=== PATIENT | female | born 1935 | race Caucasian/White ===

== ENCOUNTER → 2016-08-16 | Outpatient (CLI) | payer OTHER, MEDICARE | LOC: FIMAGING 08:30 | PROVIDERS: ATTEND Physical Medicine & Rehabilitation | DX: M50.322 Other cervical disc degeneration at C5-C6 level (principal); M48.02 Spinal stenosis, cervical region; M50.222 Other cervical disc displacement at C5-C6 level; M46.92 Unspecified inflammatory spondylopathy, cervical region ==

== ENCOUNTER → 2016-12-26 | Outpatient (CLI) | payer OTHER, MEDICARE ==
[~2016-12-26] MED LIST: IOPAMIDOL (ISOVUE-300) 100 ML BTL ONE
[2016-12-26 13:51] LABS: CREATININE 1.1 mg/dL (0.6-1.0)
== END ==
LOC: FIMAGING 12:55
PROVIDERS: ATTEND Physical Medicine & Rehabilitation
DX: K76.89 Other specified diseases of liver (principal)
CPT/HCPCS: 74170; Q9967

== ENCOUNTER 2017-11-22 09:14 | Emergency (ER) | payer OTHER, MEDICARE ==
--- NOTE | 2017-11-22 09:23 | CPEKG ---
Heart Rate: 132 RR Interval: 455 P-R Interval: 81 QRSD Interval: 70 QT Interval: 324 QTC Interval: 480 P [place]: 0 QRS [place]: 44 T Wave [place]: 38 EKG Severity - ABNORMAL ECG - EKG Impression: SINUS TACHYCARDIA Electronically Signed By: Shay Bueno 22-Nov-2017 10:04:18
--- NOTE | 2017-11-22 09:27 | EDPHY ---
H & P Time Seen by Provider: 11/22/17 09:19 HPI/ROS: CHIEF COMPLAINT: Tachycardia HISTORY OF PRESENT ILLNESS: The patient presents to the ED from a surgery center after she was noted to have tachycardia prior to receiving an epidural steroid injection. The patient told me that she was experiencing some left back spasms during this episode. This is not uncommon symptom for her. The patient was noted to be an irregular tachycardia narrow complex in nature during this event. She was not hypoxic. The patient states that her symptoms have resolved. She currently feels anxious. She has no history of recent exertional chest pain or dyspnea. The patient has no prior history of atrial fibrillation. The patient denies asymmetric calf pain or swelling. She does have a history of cervical stenosis and hypertension. REVIEW OF SYSTEMS: A comprehensive 10 point review of systems is otherwise negative aside from elements mentioned in the history of present illness. Source: Patient Exam Limitations: No limitations - Medical/Surgical History PMH: Past medical history: Cervical stenosis, hypertension - Family History Significant Family History: No pertinent family hx - Social History Smoking Status: Never smoked - Physical Exam Exam: General Appearance: Alert, no distress Eyes: Pupils equal and round no pallor or injection ENT, Mouth: Mucous membranes moist Respiratory: There are no retractions, lungs are clear to auscultation Cardiovascular: Tachycardic, regular Gastrointestinal: Abdomen is soft and nontender, no masses, bowel sounds normal Neurological: 5/5 strength all 4 extremities Skin: Warm and dry, no rashes Musculoskeletal: Neck is supple nontender Extremities: symmetrical, full range of motion Constitutional: Initial Vital Signs Temperature (C) 36.3 C 11/22/17 09:33 Heart Rate 131 H 11/22/17 09:33 Respiratory Rate 18 11/22/17 09:33 Blood Pressure 159/143 H 11/22/17 09:33 O2 Sat (%) 98 11/22/17 09:33 O2 Delivery Mode Room Air Allergies/Adverse Reactions: oxycodone [Oxycodone] Allergy (Unknown, Verified 03/09/10 21:20) codeine Allergy (Verified 11/22/17 09:37) GLUTEN Allergy (Intermediate, Uncoded 03/09/10 21:20) Home Medications: Medication Instructions Recorded CELEBREX 12/28/09 ESTROGENS,CONJUGATED 12/28/09 HYDROCHLOROTHIAZIDE 12/28/09 Levothroid 12/28/09 Potassium Cl 12/28/09 Supplements 12/28/09 T3 12/28/09 Medical Decision Making - Diagnostics EKG Interpretation: EKG: Complete interpretation has been separately recorded in the [facility] archive. Summary impression: Sinus tachycardia, rate 132 Imaging Results: Imaging Impressions Chest/Thorax CTA 11/22/17 10:02 Impression: 1. No evidence of pulmonary embolus using CT protocol. 2. Mild enlargement of the right and left atria with normal appearance of the lateral ventricles. 3. Possible new nodule within the deep central right breast near the chest wall. If indicated, consider correlation with mammography and ultrasound. 4. Stable liver cysts as well as stable solid benign-appearing nodule right lobe liver posterior segment inferiorly. Findings discussed with Shay Bueno at 11:02 hour, 11/22/2017. ED Course/Re-evaluation: The patient presents to the ED after an episode of tachycardia and likely atrial fibrillation. The patient is noted to be in a sinus tachycardia in the emergency department. She had a slightly elevated D-dimer. CT pulmonary angiogram demonstrates no evidence of PE. The patient's troponin is normal. I do believe her tachycardia secondary to mild dehydration. The patient is noted to have biatrial enlargement on her chest CT scan. I did curbside Dr. Freeman Cruz who has seen the patient as an outpatient by her report. A echocardiogram has been obtained in the emergency department. Dr. Freeman Cruz will follow up with the patient in his office this Monday. Echocardiogram demonstrates no critical findings. Patient's heart rate at discharge is 85 and sinus. Differential Diagnosis: Differential diagnosis considered includes pulmonary embolism, myocardial infarction, atrial fibrillation, SVT, dehydration, metabolic abnormality - Data Points Laboratory Results: Laboratory Results 11/22/17 09:14 11/22/17 11/22/17 11/22/17 09:31 09:14 09:14 D-Dimer 0.54 ug/mLFEU H ug/mLFEU (0.00-0.50) Sodium 140 mEq/L mEq/L (135-145) Potassium 3.6 mEq/L mEq/L (3.3-5.0) Chloride 99 mEq/L mEq/L (97-110) Carbon Dioxide 26 mEq/l mEq/l (22-31) Anion Gap 15 mEq/L mEq/L (8-16) BUN 25 mg/dL H mg/dL (7-23) Creatinine 1.1 mg/dL H mg/dL (0.6-1.0) Estimated GFR 47 Glucose 77 mg/dL mg/dL (70-100) Calcium 9.7 mg/dL mg/dL (8.5-10.4) POC Troponin I 0.02 ng/mL ng/mL (0.00-0.08) Point of Care Test Results: Chemistry 11/22/17 09:31 POC Troponin I 0.02 ng/mL ng/mL (0.00-0.08) Departure - Departure Disposition: Home, Routine, Self-Care Clinical Impression: Palpitations Condition: Good Instructions: Heart Palpitations (DC) Additional Instructions: 1. Please return to the ED for severe chest pain or shortness of breath. 2. Please follow up with Dr. Freeman Cruz in his office on Monday. Please contact his office today to schedule that visit. Please let the office staff know that Dr. Freeman Cruz requested you have a Monday appointment. Referrals: Freeman Cruz MD [Medical Doctor] - As per Instructions
[2017-11-22] MEDS ORDERED: IOPAMIDOL (ISOVUE 370) 100 ML BTL IV ONE (10:14)
[2017-11-22 12:33] VITALS: BP 139/115
--- NOTE | 2017-11-22 12:38 | ECHO ---
[email or web address] [address] [address] Main: [phone] Fax: Transthoracic Echocardiogram Name: CHRIS DALEY MR#: [id number] Study Date: 11/22/2017 Study Time: 12:05 PM Date of : 1935 Age: 82 year(s) Height: 157.5 cm (62 in.) Weight: 58.97 kg (130 lb.) BSA: 1.59 m2 Gender: Female Examination: Echo Indication: Chest Pain Image Quality: Adequate Contrast: Requested by: Shay Bueno BP: / Heart Rate: Rhythm: Sinus tachycardia Indication: Chest Pain Procedure Staff Building Architectural Designer: Sarita Juarez [facility] Reading Physician: Freeman Cruz MD Requesting Provider: Conclusions: No pericardial effusion. Normal left ventricular systolic function with ejection fraction of 70% and no regional wall motion abnormalities. Left atrial enlargement with mild mitral regurgitation. Mild to moderate tricuspid regurgitation with right ventricular systolic pressure of 37 mm of mercury. Ultrasound imaging of the liver was performed inadvertently a cystic structure is seen. Clinical correlation suggested with formal liver ultrasoun Measurements: Chambers Valvular Assessment AV/MV Valvular Assessment TV/PV Normal Normal Normal Name Value Range Name Value Range Name Value Range Ao Sharifa (MM): 2.8 cm (2.2 cm-3.7 AV Vmax: 1.14 m/s (1 m/s-1.7 TR Vmax: 2.82 mm/s ( - ) cm) m/s) TR PGmax: 32 mmHg ( - ) IVSd (2D): 1.4 cm (0.6 cm-1.1 AV maxP mmHg ( - ) syst. PAP: 37 mmHg ( - ) cm) LVOT Vmax: 1.10 m/s (0.7 m/s-1.1 PV Vmax: 0.81 m/s (0.6 m/s-0.9 LVDd (2D): 2.8 cm (3.9 cm-5.3 m/s) m/s) cm) MV E Vmax: 0.49 m/s ( - ) PV PGmax: 3 mmHg ( - ) LVDs (2D): 1.7 cm (2.1 cm-4 MV A Vmax: 1.16 m/s ( - ) cm) MV E/A: 0.42 ( - ) LVPWd (2D): 0.9 cm ( - ) LVEF (BP): 70 % (>=55 %) RVDd(2D): 3.0 cm (1.9 cm-3.8 cmmm) Continued Measurements: Chambers Valvular Assessment TV/PV Name Value Name Value LADs Lon.1 cm CVP (est.): 5 mmHg LA Area: 24.4 cm2 LA Volume: 64 ml Patient: CHRIS DALEY Study Date: 11/22/2017 Page 1 of 2 12:05 PM LA Volume Index: 40.3 ml/m2 TAPSE: 1.9 cm RA Area: 14.0 cm2 Additional Vessels Name Value Ao Ascendin.0 cm Findings: Left Ventricle: Normal size left ventricle. No LV hypertrophy. Normal global systolic LV function. EF is 70 %. No regional wall motion abnormality. Normal diastolic LV function. Mild sigmoid septum noted without significant outflow gradient. Right Ventricle: Normal size right ventricle. Normal RV function. Left Atrium: The left atrium is moderately dilated. Right Atrium: The right atrium is normal in size. Mitral Valve: The mitral valve is normal in appearance and function. Mild mitral valve regurgitation is present. No mitral stenosis is present. Aortic Valve: The aortic valve is normal in appearance and function. The aortic valve is tri-leaflet. There is no aortic valve regurgitation. No aortic valve stenosis is present. Tricuspid Valve: The tricuspid valve is normal in appearance and function. Mild to moderate tricuspid valve regurgitation. Right ventricular systolic pressure measures 37mmHg. Borderline elevated pumonary artery pressure. Pulmonic Valve: Pulmonary valve not well visualized. There is no pulmonic regurgitation seen. Aorta: The aorta is normal. Normal size aortic root measuring 2.8 cm. Normal size ascending aorta measuring 3.0 cm. IVC: The IVC is normal sized. Pericardium: No pericardial effusion. (No Signature Object) Patient: CHRIS DALEY Study Date: 11/22/2017 Page 2 of 2 12:05 PM [id number]
== END 2017-11-22 12:42 | disposition home or self-care (01) ==
LOC: EDUNIT#
DX: R00.2 Palpitations (principal)
CPT/HCPCS: 71275; 93005; 93306; 99285; Q9967; 84484-PO

== ENCOUNTER → 2018-01-01 | Outpatient (CLI) | payer OTHER, MEDICARE | LOC: FIMAGING 10:26 | PROVIDERS: ATTEND Family Medicine | DX: R06.02 Shortness of breath (principal); I10 Essential (primary) hypertension; R00.2 Palpitations | CPT/HCPCS: 78452; 93017; A9500; J2785 ==

== ENCOUNTER → 2018-01-10 | Outpatient (CLI) | payer OTHER, MEDICARE | DX: R92.8 Other abnormal and inconclusive findings on diagnostic imaging of breast (principal) ==

== ENCOUNTER 2018-05-02 14:51 | Emergency (ER) | payer OTHER, MEDICARE ==
[2018-05-02] MEDS ORDERED: NS 1,000 ML IV ONE (15:03)
--- NOTE | 2018-05-02 15:03 | EDPHY ---
H & P Stated Complaint: palpitations and lightheaded starting this am Time Seen by Provider: 05/02/18 15:03 HPI/ROS: HPI CHIEF COMPLAINT: Palpitations. HISTORY OF PRESENT ILLNESS: Very pleasant 82-year-old female, presents emergency room palpitations. Patient reports to me that back in October she had a very similar episode with an increased heart rate she was seen here and diagnosed with possible AFib. She followed up with her crystal cutter Dr. Freeman Cruz, was given Holter monitor for 30 days. Did not really capture any events. She gets regular spinal injections so declined blood thinners for history of possible AFib. She arrives to the emergency room stating that today she has felt palpitations felt her heart rate rather fast over the past day. She woke up with palpitations heart rate in the 130s. She denies any chest pain or shortness of breath denies dyspnea on exertion does complain of some lightheadedness intermittently. She arrives to the emergency room in no acute distress. Denies chest pain. Heart rate in the 90s. Echocardiogram was reviewed back in October. Normal. Past Medical History: Cervical stenosis, hypertension Past Surgical History: Regular spinal injections for cervical pain. Social History: Denies drugs alcohol tobacco. Family History: Noncontributory ROS REVIEW OF SYSTEMS: 10 Systems were reviewed and negative with the exception of the elements mentioned in the history of present illness. Exam Constitutional triage nursing summary reviewed, vital signs reviewed, awake/ alert. Eyes normal conjunctivae and sclera, EOMI, PERRLA. HENT normal inspection, atraumatic, moist mucus membranes, no epistaxis, neck supple/ no meningismus, no raccoon eyes. Respiratory clear to auscultation bilaterally, normal breath sounds, no respiratory distress, no wheezing. Cardiovascular irregular, irregular rhythm no murmur, no edema, distal pulses normal. Gastrointestinal soft, non-tender, no rebound, no guarding, normal bowel sounds, no distension, no pulsatile mass. Genitourinary no CVA tenderness. Musculoskeletal no midline vertebral tenderness, full range of motion, no calf swelling, no tenderness of extremities, no meningismus, good pulses, neurovascularly intact. Skin pink, warm, & dry, no rash, skin atraumatic. Neurologic awake, alert and oriented x 3, AAOx3, moves all 4 extremities equally, motor intact, sensory intact, CN II-XII intact, normal cerebellar, normal vision, normal speech. Psychiatric normal mood/affect. Heme/Lymph/Immune no lymphadenopathy. Differential Diagnosis: Differential diagnosis includes but is not limited to: AFib, a flutter, SVT ACS, atypical chest pain, pneumothorax, pneumonia, pulmonary embolism, aortic dissection, congestive heart failure, tumor, musculoskeletal pain, esophageal pain, GERD, peptic ulcer disease, pancreatitis Medical Decision Making: Plan for this patient IV establishment with blood draw , check electrolytes and magnesium, IV fluid bolus, EKG, equipment monitor phototypesetting, chest x-ray re-evaluate. Re-evaluation: 1618: This spoke with Dr. Ann, reviewed the case in detail. EKGs reviewed show a flutter. Recommend anticoagulation. Dr. Ann, he is talking to the patient about her treatment options. We do recommend she has close follow-up with Dr. Cruz and Dr. Calix, Underlying EKG shows most likely a flutter. She is not on any anticoagulation. Recommend she has close cardiology follow-up, and discussing risk versus benefit of anticoagulation. The patient gets regular injections for chronic neck and back pain. She in the past has declined anticoagulation. She does have risk factors for stroke given her age, comorbidities, note is recommend she takes anticoagulation. CHADS Score for Atrial Fibrillation Stroke Risk from [email or web address] on 05/02/2018 All calculations should be rechecked by clinician prior to use RESULT SUMMARY: 3 points High risk of thromboembolic event. 5.9% risk of event per year if no coumadin. The adjusted stroke rate was the expected stroke rate per 100 person-years derived from the multivariable model assuming that aspirin was not taken. INPUTS: <abbr title='Congestive heart failure'>CHF</abbr> history > 1 = Yes Hypertension history > 1 = Yes Age 74 years > 1 = Yes Diabetes mellitus history > 0 = No Stroke or TIA symptoms previously > 0 = No 1635: Dr. Ann, has seen and evaluated the patient. Patient was previously given a prescription for Eliquis. Will start her on 2.5 mg Eliquis p. O. Daily. She will need to follow up with her crystal cutter as well as Dr. Calix, Dr. Ann, has met with the patient. Discusion for Risk vs benefit about anticoagulation. Eliquis. Patient agrees for Eliquis 2.5mg Follow up with Dr. Anthony Alvarez. Additionally return precautions discussed return emergency room if worsening symptoms chest pain shortness of breath not doing well. She is comfortable this plan and feels well. She would like to go home. Serum creatinine <1.5 mg/dL: No dosage adjustment necessary unless 80 years of age and body weight 60 kg, then reduce dose to 2.5 mg twice daily Discussed patient's new medication of Eliquis. Recommend follow-up with electrophysiology Dr. Alvarez, also Dr. Millard. Return precautions discussed return emergency room if high heart rate, syncope, chest pain, shortness of breath. Recommend continuing her diltiazem. Eliquis 2.5 mg twice daily. This was reduced dose due to her age body weight 59 kilos. Reduced adjustment from 5 mg twice daily to 2.5 mg twice daily. Return precautions discussed. If she gets spinal injection she should hold Eliquis. Speak with her doctor about this. Patient re-evaluated 1728. Heart rate in the 60s. Denies chest pain or shortness of breath. Trop negative. Chest x-ray reviewed. Source: Patient - Medical/Surgical History Hx Asthma: No Hx Chronic Respiratory Disease: No Hx Diabetes: No Hx Cardiac Disease: No Hx Renal Disease: No Hx Cirrhosis: No Hx Alcoholism: No Hx HIV/AIDS: No Hx Splenectomy or Spleen Trauma: No Other PMH: Cervical stenosis, celiac's disease, HTN - Social History Smoking Status: Never smoked Constitutional: Initial Vital Signs Temperature (C) 36.8 C 05/02/18 14:59 Heart Rate 106 H 05/02/18 14:59 Respiratory Rate 16 05/02/18 14:59 Blood Pressure 151/79 H 05/02/18 14:59 O2 Sat (%) 97 05/02/18 14:59 O2 Delivery Mode Room Air Allergies/Adverse Reactions: oxycodone [Oxycodone] Allergy (Unknown, Verified 03/09/10 21:20) codeine Allergy (Verified 11/22/17 09:37) GLUTEN Allergy (Intermediate, Uncoded 03/09/10 21:20) Home Medications: Medication Instructions Recorded [place] Thyroid 01/01/18 Celebrex 01/01/18 Chlorthalidone 01/01/18 Diltiazem 08/06/18 Estradiol Transdermal Patch 01/01/18 Lisinopril 01/01/18 Potassium Chloride 01/01/18 Apixaban [Eliquis] 2.5 mg PO BID #60 tab 05/02/18 Medical Decision Making - Diagnostics Imaging Results: Imaging Impressions Chest X-Ray 05/02/18 15:16 Impression: Probable left basilar atelectasis. - Data Points Laboratory Results: Laboratory Results 05/02/18 15:09 05/02/18 15:09 05/02/18 05/02/18 05/02/18 15:11 15:09 15:09 WBC RBC Hgb Hct MCV MCH MCHC RDW Plt Count MPV Neut % (Auto) Lymph % (Auto) Early % (Auto) Eos % (Auto) Baso % (Auto) Nucleat RBC Rel Count Absolute Neuts (auto) Absolute Lymphs (auto) Absolute Monos (auto) Absolute Eos (auto) Absolute Basos (auto) Absolute Nucleated RBC Immature Gran % Immature Gran # PT 13.1 SEC SEC (12.0-15.0) INR 0.97 (0.83-1.16) APTT 29.2 SEC SEC (23.0-38.0) Sodium 135 mEq/L mEq/L (135-145) Potassium 3.5 mEq/L mEq/L (3.5-5.2) Chloride 95 mEq/L L mEq/L (97-110) Carbon Dioxide 26 mEq/l mEq/l (22-31) Anion Gap 14 mEq/L mEq/L (6-14) BUN 21 mg/dL mg/dL (7-23) Creatinine 1.3 mg/dL H mg/dL (0.6-1.0) Estimated GFR 39 Glucose 99 mg/dL mg/dL (70-100) Calcium 9.3 mg/dL mg/dL (8.5-10.4) Magnesium 1.6 mg/dL mg/dL (1.6-2.3) Creatine Kinase 64 IU/L IU/L (0-156) CK-MB (CK-2) Fraction 1.67 ng/mL ng/mL (0.00-4.55) POC Troponin I 0.02 ng/mL ng/mL (0.00-0.08) NT-Pro-B Natriuret Pep 3570 pg/mL H pg/mL (0-450) 05/02/18 15:09 WBC 8.13 10^3/uL 10^3/uL (3.80-9.50) RBC 4.35 10^6/uL 10^6/uL (4.18-5.33) Hgb 14.0 g/dL g/dL (12.6-16.3) Hct 40.7 % % (38.0-47.0) MCV 93.6 fL fL (81.5-99.8) MCH 32.2 pg pg (27.9-34.1) MCHC 34.4 g/dL g/dL (32.4-36.7) RDW 13.5 % % (11.5-15.2) Plt Count 311 10^3/uL 10^3/uL (150-400) MPV 8.8 fL fL (8.7-11.7) Neut % (Auto) 70.2 % % (39.3-74.2) Lymph % (Auto) 20.5 % % (15.0-45.0) Early % (Auto) 7.1 % % (4.5-13.0) Eos % (Auto) 1.4 % % (0.6-7.6) Baso % (Auto) 0.4 % % (0.3-1.7) Nucleat RBC Rel Count 0.0 % % (0.0-0.2) Absolute Neuts (auto) 5.71 10^3/uL 10^3/uL (1.70-6.50) Absolute Lymphs (auto) 1.67 10^3/uL 10^3/uL (1.00-3.00) Absolute Monos (auto) 0.58 10^3/uL 10^3/uL (0.30-0.80) Absolute Eos (auto) 0.11 10^3/uL 10^3/uL (0.03-0.40) Absolute Basos (auto) 0.03 10^3/uL 10^3/uL (0.02-0.10) Absolute Nucleated RBC 0.00 10^3/uL 10^3/uL (0-0.01) Immature Gran % 0.4 % % (0.0-1.1) Immature Gran # 0.03 10^3/uL 10^3/uL (0.00-0.10) PT INR APTT Sodium Potassium Chloride Carbon Dioxide Anion Gap BUN Creatinine Estimated GFR Glucose Calcium Magnesium Creatine Kinase CK-MB (CK-2) Fraction POC Troponin I NT-Pro-B Natriuret Pep Medications Given: Discontinued Medications Sodium Chloride (Ns) 1,000 mls @ 0 mls/hr IV EDNOW ONE; Wide Open PRN Reason: Protocol Stop: 05/02/18 15:04 Last Admin: 05/02/18 15:17 Dose: 1,000 mls Point of Care Test Results: Chemistry 05/02/18 15:11 POC Troponin I 0.02 ng/mL ng/mL (0.00-0.08) Departure - Departure Disposition: Home, Routine, Self-Care Clinical Impression: Atrial flutter Qualifiers: Atrial flutter type: unspecified Qualified Code(s): I48.92 - Unspecified atrial flutter Condition: Good Instructions: Atrial Flutter (ED) Additional Instructions: 1. Return to the emergency room if there is worsening symptoms questions or concerns. Referrals: NONE *PRIMARY CARE P,. [Primary Care Provider] - As per Instructions Freeman Cruz MD [Medical Doctor] - As per Instructions Ifeanyi Alvarez MD [Medical Doctor] - As per Instructions Prescriptions: Apixaban [Eliquis] 2.5 mg PO BID #60 tab
[2018-05-02 15:20] LABS: PLATELET COUNT 311 10^3/uL (150-400)
[2018-05-02 15:30] LABS: CREATINE KINASE 64 IU/L (0-156)
[2018-05-02 15:31] LABS: INR 0.97 (0.83-1.16); PROTIME(PATIENT) 13.1 SEC (12.0-15.0)
[2018-05-02] MEDS ORDERED: APIXABAN 2.5 MG TAB PO ONE (16:40)
[2018-05-02 17:48] VITALS: BP 140/75
--- NOTE | 2018-05-04 08:01 | CPEKG ---
Test Reason : OPEN Blood Pressure : / mmHG Vent. Rate : 066 BPM Atrial Rate : 268 BPM P-R Int : 209 ms QRS Dur : 086 ms QT Int : 446 ms P-R-T Axes : -76 024 045 degrees QTc Int : 468 ms Atrial flutter with predominant 4:1 AV block Inferior infarct, old Probable anterolateral infarct, old Confirmed by Noah Alexandre ([id number]) on 05/04/2018 8:00:37 AM Referred By: Confirmed By:Noah Alexandre
--- NOTE | 2018-05-04 08:01 | CPEKG ---
Test Reason : OPEN Blood Pressure : / mmHG Vent. Rate : 092 BPM Atrial Rate : 046 BPM P-R Int : 203 ms QRS Dur : 083 ms QT Int : 373 ms P-R-T Axes : -86 000 041 degrees QTc Int : 462 ms Atrial flutter Probable anterolateral infarct, old Confirmed by Noah Alexandre ([id number]) on 05/04/2018 8:00:37 AM Referred By: Confirmed By:Noah Alexandre
== END 2018-05-02 17:48 | disposition home or self-care (01) ==
DX: I48.92 Unspecified atrial flutter (principal); E86.9 Volume depletion, unspecified; I10 Essential (primary) hypertension; M48.02 Spinal stenosis, cervical region
CPT/HCPCS: 84484-PO

== ENCOUNTER 2018-06-18 09:49 | Emergency (ER) | payer OTHER, MEDICARE ==
--- NOTE | 2018-06-18 09:58 | EDPHY ---
H & P Time Seen by Provider: 06/18/18 09:54 HPI/ROS: CHIEF COMPLAINT: Heart racing HISTORY OF PRESENT ILLNESS: Patient was seen in May 02 for atrial flutter. She is currently anticoagulated on Eliquis and takes diltiazem 120 mg per day. She had a negative nuclear stress test in the last couple of weeks of [facility]. She noticed her heart was racing today at about 1:30 a.m. And her heart rate was 122 at 2:00 a.m. And 138 at 8:30 a.m.. At this time she also felt a "sharp come and go pain" under her left breast in her chest, the lasted about 5 or 6 sec. She said it felt like a "cluster in my chest." Still is a little bit of left-sided chest discomfort when she takes a deep breath. No coughing or shortness of breath or hemoptysis. She is taking some deep breaths to keep herself calm. REVIEW OF SYSTEMS: Eye: no change in vision ENT: no sore throat Cardiac: No syncope Pulmonary: no cough or SOB Abdomen: no vomiting, diarrhea, abdominal pain Musculoskeletal: Patient has chronic cervical spine stenosis for which she gets regular injections. Skin: no rash Neuro: no headache Constitutional: no fever : no urinary symptoms A comprehensive 10 point review of systems is otherwise negative aside from elements mentioned in the history of present illness. PAST MEDICAL HISTORY: Cervical spine stenosis, celiac disease, hypertension, atrial fibrillation/flutter. Social history: Lives here and in [facility] General Appearance: Alert and conversant, cooperative. Eyes: No scleral icterus. ENT, Mouth: Normal mucous membranes. Respiratory: Normal respiratory effort, breath sounds equal, lungs are clear to auscultation. Cardiovascular: Regular rate and rhythm. Tachycardic. Gastrointestinal: Abdomen is soft and non tender. Neurological: Alert, face symmetric, normal motor and sensory in extremities. Skin: Warm and dry, no rashes. Musculoskeletal: No peripheral edema. Psychiatric: Not agitated. Emergency Department course/MDM: Initial EKG shows atrial flutter but she spontaneously converted to sinus rhythm , 2nd EK-lead EKG interpreted by me; official reading is in computer system. My interpretation is sinus rhythm with TX 212, at 10:19 a.m. Discussed with [facility] for cardiology, he recommended increase oral diltiazem dose to 120mg po bid; at 10:25. Discussed with patient and consented. Cardiology will call her tomorrow. Unlikely to be ACS or AL with recent negative nuclear stress test and 5 sec of chest pain, unlikely to be pulmonary embolism because she is on Eliquis. Smoking Status: Never smoked Constitutional: Initial Vital Signs Temperature (C) 36.4 C 06/18/18 09:51 Heart Rate 134 H 06/18/18 09:51 Respiratory Rate 20 06/18/18 09:51 Blood Pressure 172/123 H 06/18/18 09:51 O2 Sat (%) 98 06/18/18 09:51 O2 Delivery Mode Room Air Allergies/Adverse Reactions: oxycodone [Oxycodone] Allergy (Unknown, Verified 06/18/18 09:49) codeine Allergy (Verified 06/18/18 09:49) GLUTEN Allergy (Intermediate, Uncoded 03/09/10 21:20) Home Medications: Medication Instructions Recorded Priddy Thyroid 01/01/18 Celebrex 01/01/18 Chlorthalidone 01/01/18 Diltiazem 01/01/18 Estradiol Transdermal Patch 01/01/18 Lisinopril 01/01/18 Potassium Chloride 01/01/18 Apixaban [Eliquis] 2.5 mg PO BID #60 tab 05/02/18 Medical Decision Making - Diagnostics EKG Interpretation: 12-lead EKG interpreted by me; official reading is in computer system. My interpretation is atrial flutter rate 114 with no acute ischemic changes. Differential Diagnosis: Differential diagnosis considered for chest pain including but not limited to myocardial ischemia, aortic dissection, pericarditis, pulmonary embolus, chest wall pain, pleural inflammation and pulmonary infectious causes. Departure - Departure Disposition: Home, Routine, Self-Care Clinical Impression: Atrial flutter with rapid ventricular response Condition: Good Instructions: Atrial Flutter (ED) Additional Instructions: Continue medications including Eliquis and diltiazem as prescribed. Increase your diltiazem dosing to 120mg by mouth twice a day; once in the morning and once in the evening, about 12 hours apart. [email or web address] will call you tomorrow. Referrals: Nicholas Ann MD [Medical Doctor] - As per Instructions
--- NOTE | 2018-06-18 10:23 | CPEKG ---
Test Reason : OPEN Blood Pressure : / mmHG Vent. Rate : 114 BPM Atrial Rate : 263 BPM P-R Int : 160 ms QRS Dur : 080 ms QT Int : 327 ms P-R-T Axes : 000 032 031 degrees QTc Int : 451 ms Atrial flutter Ventricular premature complex Minimal ST depression, anterolateral leads Confirmed by Trell Naylor ([id number]) on 06/18/2018 10:23:00 AM Referred By: Confirmed By:Trell Naylor
--- NOTE | 2018-06-18 10:23 | CPEKG ---
Test Reason : OPEN Blood Pressure : / mmHG Vent. Rate : 068 BPM Atrial Rate : 068 BPM P-R Int : 212 ms QRS Dur : 086 ms QT Int : 409 ms P-R-T Axes : -68 021 044 degrees QTc Int : 436 ms Sinus or ectopic atrial rhythm Borderline prolonged WI interval Confirmed by Trell Naylor ([id number]) on 06/18/2018 10:23:05 AM Referred By: Confirmed By:Trell Naylor
[2018-06-18 10:44] VITALS: BP 161/93
== END 2018-06-18 10:53 | disposition home or self-care (01) ==
DX: I48.92 Unspecified atrial flutter (principal); I10 Essential (primary) hypertension; K90.0 Celiac disease; M48.02 Spinal stenosis, cervical region; Z79.01 Long term (current) use of anticoagulants

== ENCOUNTER → 2018-06-19 | Outpatient (CLI) | payer OTHER, MEDICARE | LOC: BHFA 11:00 | PROVIDERS: ATTEND Registered Nurse | DX: I48.92 Unspecified atrial flutter (principal) ==

== ENCOUNTER 2018-07-11 08:45 | Observation (INO) | payer OTHER, MEDICARE ==
[2018-07-11] MEDS ORDERED: NS 1,000 ML IV ONE (08:47)
[2018-07-11 09:27] LABS: PLATELET COUNT 292 10^3/uL (150-400)
[2018-07-11 09:36] LABS: INR 0.98 (0.83-1.16); PROTIME(PATIENT) 13.2 SEC (12.0-15.0)
[2018-07-11] MEDS ORDERED: HEPARIN 10,000 UNIT/10 ML MDV (1,000 UNIT/ML) ONE (09:48)
[2018-07-11] MEDS ORDERED: LIDOCAINE 1% 300 MG/30 ML SDV ONE (09:48)
[2018-07-11] MEDS ORDERED: ISOPROTERENOL HCL/D5W 0.2 MG/50 ML BAG IV ONE (09:48)
[2018-07-11] MEDS ORDERED: BUPIVACAINE 0.75% 10 ML SDV ONE (09:48)
--- NOTE | 2018-07-11 09:55 | PDGENHP ---
History & Physical Chief Complaint: symptomatic afl Relevant Physical Exam: s1s2 rrr cta ao3 Cardiorespiratory Assessment: for AFL ablation and LINQ monitor. Reviewed indications for ablation and LINQ with patient
[2018-07-11] MEDS ORDERED: MIDAZOLAM 2 MG/2 ML VIAL ONE ×2 (09:56→10:20)
--- NOTE | 2018-07-11 10:01 | PDANEPAE ---
ANE Past Medical History - Pulmonary History Hx Oxygen in Use at Home: No - Endocrine History Hx Diabetes: No ANE Review of Systems Review of Systems: ANE Patient History - Allergies Allergies/Adverse Reactions: oxycodone [Oxycodone] Allergy (Unknown, Verified 06/18/18 09:49) codeine Allergy (Verified 06/18/18 09:49) GLUTEN Allergy (Intermediate, Uncoded 03/09/10 21:20) - Home Medications Home Medications: Chlorthalidone [Chlorthalidone 25 mg (*)] 25 mg PO DAILY 01/01/18 [Last Taken 08:00] Diltiazem HCl [Cartia Xt] 120 mg PO HS 01/01/18 [Last Taken 07/08/18 21:00] Estradiol [Vivelle-Dot 0.075MG (*)] 0.075 mg TD SuWe@0800 01/01/18 [Last Taken 07/04/18 08:00] Lisinopril [Zestril 5 mg (*)] 5 mg PO DAILY 01/01/18 [Last Taken 07/10/18 08:00] Potassium Cl [Klor-Con] 10 meq PO BID 01/01/18 [Last Taken 07/10/18 21:00] Thyroid [Biloxi Thyroid 60 MG (*)] 60 mg PO SUWE 01/01/18 [Last Taken 07/08/18 08:00] celeCOXIB [Celebrex (*)] 200 mg PO BID 01/01/18 [Last Taken 07/10/18 21:00] Azelastine/Fluticasone [Dymista Nasal [place]] 1 spray NS DAILY 07/04/18 [Last Taken 07/10/18 08:00] Glucosamine Sulfate [Glucosamine Sulfate 500 MG (*)] 500 mg PO DAILY 07/04/18 [ Last Taken Unknown] Herbals/Supplements -Info Only 1 ea PO DAILY 07/04/18 [Last Taken Unknown] Thyroid,Pork [Biloxi Thyroid] 90 mg PO MOTUTHFRSA 07/04/18 [Last Taken 07/10/18 08:00] - Smoking Hx Smoking Status: Never smoked ANE Physical Exam - Airway Neck exam: decreased ROM Mallampati Score: Class 1 Mouth exam: normal dental/mouth exam - Pulmonary Pulmonary: no respiratory distress - Cardiovascular Cardiovascular: irregularly irregular - ASA Status ASA Status: III ANE Anesthesia Plan Anesthesia Plan: general endotracheal anesthesia
[2018-07-11] MEDS ORDERED: PROPOFOL/EMULSION 500 MG/50 ML BOTTLE IV ONE ×2 (10:19→10:35)
[2018-07-11] MEDS ORDERED: fentaNYL 100 MCG/2 ML INJ ONE (10:19)
[2018-07-11] MEDS ORDERED: ePHEDrine SULFATE 25 MG/5 ML SYR ONE (10:19)
[2018-07-11] MEDS ORDERED: PHENYLEPHRINE HCL 100 MCG/ML SYR ONE (10:19)
[2018-07-11] MEDS ORDERED: ROCURONIUM 100 MG/10 ML VIAL ONE (10:19)
[2018-07-11] MEDS ORDERED: ONDANSETRON 4 MG/2 ML VIAL ONE (10:19)
[2018-07-11] MEDS ORDERED: DEXAMETHASONE 4 MG/ML VIAL ONE (10:19)
--- NOTE | 2018-07-11 11:47 | CPEKG ---
Test Reason : OPEN Blood Pressure : / mmHG Vent. Rate : 080 BPM Atrial Rate : 080 BPM P-R Int : 222 ms QRS Dur : 086 ms QT Int : 385 ms P-R-T Axes : 042 021 026 degrees QTc Int : 445 ms Sinus rhythm Prolonged WA interval Confirmed by Ifeanyi Alvarez ([id number]) on 07/11/2018 11:46:46 AM Referred By: Ifeanyi Alvarez Confirmed By:Ifeanyi Alvarez
[2018-07-11] MEDS ORDERED: PROTAMINE SULFATE 50 MG/5 ML VIAL IVP ONE (11:53)
--- NOTE | 2018-07-11 12:11 | EPPROC ---
Electrophysiology Procedure Note: ELECTROPHYSIOLOGIC STUDY AND CATHETER MEDIATED ABLATION FOR SUBEUSTACHIAN ISTHMUS DEPENDENT COUNTERCLOCKWISE ATRIAL FLUTTER: INDICATION: Recurrent atrial flutter PROCEDURES PERFORMED: 90159-94 EP evaluation with RA/RV/LA pace/record, with arrhythmia induction 53309-78 EP evaluation with RA/RV pace record, insert/reposition catheter, with arrhythmia induction 88080 SVT ablation LINQ monitor 38416 3D mapping Fluoroscopy Catheters & Anesthesia: The patient arrived in the Electrophysiology Laboratory in the fasting state. The right clavicular region, right groin, and left groin area were prepped and draped in the usual sterile manner. Anesthesiologist Dr. Katherin Rowland administered general anesthesia. Appropriate non-invasive blood pressure, pulse oximetry and end-tidal CO2 monitoring was established. All catheters were placed percutaneously using the modified Seldinger technique , and advanced into position under fluoroscopic guidance. One #7 [place] Island[place] deflectable octapolar electrode catheter was advanced to the His-bundle position via the left femoral vein (2mm spacing; except the proximal ring which was 25cm from the tip used for unipolar recordings). One #7 [place] deflectable catheter with 10 pairs of electrodes was placed via the left femoral vein into the coronary sinus. One # 7 [place] Island[place] Halo catheter was inserted through the right femoral vein and was placed at the tricuspid annulus. Heparin was administered to keep ACT > 200 seconds. Programmed stimulation was performed from the right atrium, coronary sinus ( left atrium) and right ventricle. Parahisian pacing demonstrated all retrograde conduction over the AV node. On arrival to the Electrophysiology Laboratory the patient was in sinus rhythm. Atrial flutter has been seen previously. In preparation for ablation of typical atrial flutter, a high-resolution 3D (3 dimensional) Carto electroanatomical map of the sub-Eustachian isthmus and right atrium was obtained during pacing of the posterolateral coronary sinus. For ablation of typical atrial flutter, one #8.5 [place] Islander Mobi sheath was placed in the right atrium. A #8 [place] deflectable quadrapolar electrode catheter ( 2mm-5mm-2mm spacing) with 3.5 mm STSF irrigated tip electrode and location sensor for the Jaunt mapping system was inserted in the long sheath and advanced to the right atrium. Radiofrequency applications were applied between the tricuspid annulus at 0630 oclock as seen in the RONI view and the inferior vena cava. This achieved conduction block across the isthmus. Following ablation of the atrial flutter, programmed atrial stimulation was performed in the baseline state and during infusion of isoproterenol 2 mcg/min. No atrial arrhythmias were inducible post ablation. Post ablation, a high-resolution electroanatomical map of the sub-Eustachian isthmus was obtained during pacing of the posterolateral coronary sinus. This confirmed conduction block across the sub-Eustachian isthmus. Bidirectional block was also confirmed by pacing. The catheters were removed. Protamine was administered. Sheaths were removed in the EP lab after applying subcutaneous purse string suture. LINQ monitor was placed in EP lab in L 4th intercostal space. SN RLA [id number] Triggers pt activated, HR<40 bpm, >150 bpm, asystole >3 s, AFIB. The patient was transferred to the cardiovascular holding area in stable condition. There were no apparent complications. CONCLUSIONS: 1. Cavotricuspid isthmus dependent counterclockwise atrial flutter. 2. Successful catheter mediated ablation of cavotricuspid isthmus achieving bi -directional conduction block across cavotricuspid isthmus. 3. No atrial arrhythmias inducible post ablation. 4. No apparent complications. 5. LINQ implant Patient Problems: Problems Problem Status Onset Atrial flutter Acute
[2018-07-11] MEDS ORDERED: THYROID 60 MG TAB PO SCH (12:15)
--- NOTE | 2018-07-11 12:36 | POSTANESTH ---
Post Anesthetic Evaluation Cardiovascular Status: Normal, Stable Respiratory Status: Normal, Stable Level of Consciousness/Mental Status: Mildly Sleepy, Arousable Pain Control: Adequate, Prn Tx Ordered Nausea/Vomiting Control: Adequate, Prn Tx Ordered Complications Possibly Related to Anesthesia: None Noted
[2018-07-11] MEDS: POTASSIUM CL 10 MEQ TAB PO SCH (20:55)
[2018-07-12 05:21] LABS: PLATELET COUNT 237 10^3/uL (150-400)
[2018-07-12] MEDS ORDERED: THYROID 60 MG TAB PO SCH (08:00)
[2018-07-12] MEDS ORDERED: Azelastine/Fluticasone [Dymista Nasal Spray] NS SCH (09:00)
[2018-07-12] MEDS ORDERED: CHLORTHALIDONE 25 MG TAB PO SCH (09:00)
[2018-07-12] MEDS ORDERED: LISINOPRIL 5 MG TAB PO SCH (09:00)
[2018-07-12] MEDS ORDERED: ASPIRIN 81 MG CHEWABLE TAB PO SCH (09:00)
[2018-07-12] MEDS: POTASSIUM CL 10 MEQ TAB PO SCH (09:20)
--- NOTE | 2018-07-12 09:54 | ECHO ---
[email or web address] [address] Main: [phone] Fax: Transthoracic Echocardiogram Name: CHRIS DALEY MR#: [id number] Study Date: 07/12/2018 Study Time: 08:26 AM Date of : 1935 Age: 83 year(s) Height: 157.5 cm (62 in.) Weight: 58.06 kg (128 lb.) BSA: 1.58 m2 Gender: Female Examination: Echo Indication: F/U post EP study Image Quality: Adequate Contrast: Requested by: Ifeanyi Alvarez BP: 145 mmHg/71 mmHg Heart Rate: Rhythm: Indication: F/U post EP study Procedure Staff Recruitment Internship: Sarita Juarez [facility] Reading Physician: Jan Todd MD Requesting Provider: Conclusions: Normal global systolic LV function. EF is 70 %. Moderate to severe mitral regurgitation. Moderate tricuspid regurgitation is present. Right ventricular systolic pressure measures 51mmHg. Measurements: Chambers Valvular Assessment AV/MV Valvular Assessment TV/PV Normal Normal Normal Name Value Range Name Value Range Name Value Range Ao Sharifa (MM): 2.5 cm (2.2 cm-3.7 AV Vmax: 1.24 m/s (1 m/s-1.7 TR Vmax: 3.21 mm/s ( - ) cm) m/s) TR PGmax: 41 mmHg ( - ) IVSd (2D): 0.9 cm (0.6 cm-1.1 AV maxP mmHg ( - ) syst. PAP: 51 mmHg ( - ) cm) AV meanP mmHg ( - ) PV Vmax: 0.78 m/s (0.6 m/s-0.9 LVDd (2D): 3.4 cm (3.9 cm-5.3 CINDY (VTI): 2.3 cm ( - ) m/s) cm) MV E Vmax: 1.47 m/s ( - ) PV PGmax: 2 mmHg ( - ) LVDs (2D): 2.2 cm (2.1 cm-4 MV A Vmax: 0.85 m/s ( - ) cm) MV E/A: 1.73 ( - ) LVPWd (2D): 0.8 cm ( - ) MV meanP mmHg ( - ) LVOTd 1.9 cm 1.9 cm mm MVA (Vmax): 4.3 m/s ( - ) LVEF (BP): 70 % (>=55 %) RVDd(2D): 4.1 cm (1.9 cm-3.8 cmmm) Continued Measurements: Chambers Valvular Assessment AV/MV Valvular Assessment TV/PV Name Value Name Value Name Value LADs: 3.1 cm MV Annulus: 3.0 cm CVP (est.): 10 mmHg LADs Lon.2 cm MV DecTime: 148 m/s Patient: CHRIS DALEY Study Date: 07/12/2018 Page 1 of 2 08:26 AM LA Area: 25.0 cm2 MV E' Septal: 0.05 m/s LA Volume: 83 ml MV E/E' Septal: 29.60 LA Volume Index: 52.5 ml/m2 MV E/E' Lateral: 28.40 TAPSE: 2.4 cm MV VTI: 15.90 cm RA Area: 16.6 cm2 MR Vena Contracta: 0.4 cm MR ERO: 0.230 cm2 MR PISA radius: 7 mm MR Reg. Volume: 52 ml MR Reg. Fraction: 46 % Additional Vessels Name Value Ao Ascendin.9 cm Findings: Left Ventricle: Normal size left ventricle. No LV hypertrophy. Normal global systolic LV function. EF is 70 %. No regional wall motion abnormality. Grade II diastolic dysfunction. Right Ventricle: Mildly dilated right ventricle. Normal RV function. Left Atrium: The left atrium is severely dilated. Right Atrium: The right atrium is borderline dilated. Mitral Valve: There is mild thickening of the mitral valve leaflets. Moderate to severe mitral regurgitation. No mitral stenosis is present. Aortic Valve: The aortic valve is tri-leaflet. There is no aortic valve regurgitation. No aortic valve stenosis is present. Tricuspid Valve: The tricuspid valve is normal in appearance and function. Moderate tricuspid regurgitation is present. Right ventricular systolic pressure measures 51mmHg. The pulmonary artery pressure is moderately increased. Pulmonic Valve: Pulmonary valve not well visualized. Trivial pulmonic valve regurgitation. Aorta: Normal size aortic root measuring 2.5 cm. Normal size ascending aorta measuring 2.9 cm. IVC: The IVC is dilated. No foreign body in inferior vena cava. There is greater cristi 50% respiratory excursion. Pericardium: No pericardial effusion. (No Signature Object) Patient: CHRIS DALEY Study Date: 07/12/2018 Page 2 of 2 08:26 AM [id number]
--- NOTE | 2018-07-12 10:35 | ASDISCHSUM ---
Discharge Information Plan Status:Home with No Needs Medically Cleared to Leave:07/11/2018 Discharge Date:07/11/2018 CM D/C Disposition:Home, Routine, Self-Care ADT D/C Disposition:Home, Routine, Self-Care Projected Discharge Date:07/11/2018 Transportation at D/C: Discharge Delay Reason: Follow-Up Date:07/11/2018 Discharge Slot: Final Diagnosis: Placement Information Patient Contact Information Contact Name:BRIGITTE Relationship: Address:[address] [facility] [facility] City:[place] Alternate Phone: [facility]/Zip Code:[place] [address] Email: Financial Information Financial Class:Medicare Primary Plan Desc:MEDICARE OUTPATIENT Primary Plan Number:[id number] Secondary Plan Desc:MARANDA/WERNER SUPPLEMENT Secondary Plan Number:[id number] Assessment Information LACE LACE Length of stay for Answers: Less than 1 day current admission Acuity / Level of Answers: No Care: Did the patient have an inpatient admission? Comorbidities - select Answers: Other Notes: HTN all that apply # of Emergency department Answers: 1-2 visits in the last 6 months Score: 2 Date Signed: 07/12/2018 10:34 AM Electronically Signed By:Mini Jaime RN Intervention Information
[2018-07-12 12:38] VITALS: BP 126/67
--- NOTE | 2018-07-12 19:18 | GDS ---
[f rep st] DISCHARGE SUMMARY SUPERVISING PUBLIC HEALTH MICROBIOLOGIST: Ifeanyi Alvarez. ADMISSION DIAGNOSIS: Atrial flutter. DISCHARGE DIAGNOSIS: Atrial flutter status post successful ablation. PROCEDURES PERFORMED DURING HOSPITALIZATION: 1. Electrocardiogram. 2. Echocardiogram. 3. Electrophysiology study. 4. Atrial flutter ablation. 5. Implantable loop recorder. HOSPITAL COURSE: Patient presented 07/11/2018, for an atrial flutter ablation in the setting of incr easingly frequent and symptomatic episodes of atrial flutter. She underwent successful catheter-medi ated ablation for subeustachian isthmus dependent counterclockwise atrial flutter with Dr. Alvarez withou t any intra procedure complications. She has done very well in the postprocedure setting and she has been up ambulating around her room this morning without issue. She is appropriate and stable for [facility] today. PHYSICAL EXAMINATION: GENERAL: She is alert and oriented x4, in no apparent distress. VITAL SIGNS: Blood pressure 126/67, heart rate 86, respiratory rate 22, SpO2 95% on room air, temp 36.5 degrees Celsius. RESPIRATORY: Lungs clear to auscultation without adventitious breath sounds. CARDIAC: No rmal S1 and S2, no S3, S4. Rhythm is regular. ABDOMEN: Normoactive bowel sounds times all 4 quadra nts. No masses or tenderness. Abdomen is soft to palpation. SKIN: [place], warm, dry, without cyanos is, clubbing, or peripheral edema. EXTREMITIES: Bilateral pursestring sutures removed intact withou t evidence of hematoma, redness, oozing, swelling, or warmth. Pulses are 2+ bilaterally. No edema. LABORATORY STUDIES: Drawn today: CBC and BMP are stable compared to preprocedure. Troponin is 0.60 8, this elevated troponin is to be expected in the postprocedure setting. PROCEDURES: Electrophysiology study and atrial flutter ablation as mentioned above. Preliminary ech ocardiogram done this morning demonstrates normal left ventricular systolic function without wall mot ion abnormalities or pericardial effusion. Electrocardiogram this morning demonstrates normal sinus rhythm without new ST-T wave or VT interval abnormalities. DISCHARGE DISPOSITION: Patient will be discharged home in stable condition. She is under activity i nstructions as below. DISCHARGE MEDICATIONS: Please see discharge medication reconciliation sheet for full details. Victoria aragon note that patient's Eliquis has been discontinued per her preference at this time. DISCHARGE INSTRUCTIONS: Post atrial flutter ablation and implantable loop recorder instructions fina ewed with the patient in detail. We discussed activity restrictions including lifting no more than 1 0 pounds and avoid submerged bathing for 10 days. She will get up and walk around every 45 minutes f or the next 45 days. She will keep her LINQ monitor dressing clean and dry and she will have her sta ples removed in our device clinic in 1 week. If this dressing becomes saturated for any reason, she will remove this dressing and leave the site open to air. We also reviewed bleeding precautions, med ication compliance, monitoring for signs and symptoms of infection, and monitoring for sustained arrh ythmia. At the time of discharge, patient verbalizes understanding of all discharge instructions wit hout questions or concerns. She has a followup visit scheduled with our device clinic in 1 week and a followup visit with Dr. Alvarez scheduled in 3 weeks. She will contact the clinic with any new or conc erning symptoms prior to these upcoming visits. Time spent on discharge greater than 30 minutes. /[id number]/MODL
--- NOTE | 2018-07-12 19:54 | CPEKG ---
Test Reason : OPEN Blood Pressure : / mmHG Vent. Rate : 065 BPM Atrial Rate : 065 BPM P-R Int : 235 ms QRS Dur : 083 ms QT Int : 420 ms P-R-T Axes : 033 041 049 degrees QTc Int : 437 ms Sinus rhythm Prolonged MO interval Confirmed by Ifeanyi Alvarez ([id number]) on 07/12/2018 7:53:32 PM Referred By: Ifeanyi Alvarez Confirmed By:Ifeanyi Alvarez
--- NOTE | 2018-07-12 20:02 | CPEKG ---
Test Reason : OPEN Blood Pressure : / mmHG Vent. Rate : 067 BPM Atrial Rate : 068 BPM P-R Int : 292 ms QRS Dur : 086 ms QT Int : 448 ms P-R-T Axes : 049 052 055 degrees QTc Int : 473 ms Sinus rhythm Prolonged IL interval Confirmed by Ifeanyi Alvarez ([id number]) on 07/12/2018 8:02:16 PM Referred By: Ifeanyi Alvarez Confirmed By:Ifeanyi Alvarez
== END 2018-07-12 14:57 | disposition home or self-care (01) ==
LOC: FCATH 08:45 → F2W 12:12
PROVIDERS: ADMIT Internal Medicine Cardiovascular Disease; ATTEND Internal Medicine Cardiovascular Disease
DX: I48.92 Unspecified atrial flutter (principal); I10 Essential (primary) hypertension; E78.5 Hyperlipidemia, unspecified; I34.0 Nonrheumatic mitral (valve) insufficiency; I36.1 Nonrheumatic tricuspid (valve) insufficiency; E03.9 Hypothyroidism, unspecified; M48.00 Spinal stenosis, site unspecified; Z79.01 Long term (current) use of anticoagulants
CPT/HCPCS: 33285; 93005; 93306; 93613; 93621; 93623; 93653; C1731; C1732; C1764; C1766; J1100; J1644; J2250; J2370; J2405; J2704; J2720; J3010; 84481-90

== ENCOUNTER → 2018-07-18 | Outpatient (CLI) | payer OTHER, MEDICARE | LOC: BHFA 15:15 | PROVIDERS: ATTEND Internal Medicine Cardiovascular Disease | DX: R42 Dizziness and giddiness (principal) ==

== ENCOUNTER 2018-07-24 16:41 | Observation (INO) | payer OTHER, MEDICARE ==
[2018-07-24 17:34] LABS: PLATELET COUNT 319 10^3/uL (150-400)
--- NOTE | 2018-07-24 17:38 | EDPHY ---
H & P Stated Complaint: ablation for flutter 2 weeks ago cp today Time Seen by Provider: 07/24/18 16:57 HPI/ROS: CHIEF COMPLAINT: Chest pain, shortness of breath HISTORY OF PRESENT ILLNESS: 83-year-old female status post cardiac ablation 2 weeks ago on Eliquis presents with chest pain and shortness of breath. Onset of intermittent chest pain 1 week ago. The chest pain is a moderate dull ache and lasts between 5-20 minutes. Associated with shortness of breath. No change with exertion or deep inspiration. 5 episodes of chest discomfort today. Has been seen in the cardiology office twice for similar symptoms. Recent echocardiogram reportedly unremarkable. REVIEW OF SYSTEMS: complete 10 point ROS reviewed and is negative except for the noted elements in the HPI - Personal History Current Tetanus Diphtheria and Acellular Pertussis (TDAP): Yes - Medical/Surgical History Hx Asthma: No Hx Chronic Respiratory Disease: No Hx Diabetes: No Hx Cardiac Disease: Yes Hx Renal Disease: No Hx Cirrhosis: No Hx Alcoholism: No Hx HIV/AIDS: No Hx Splenectomy or Spleen Trauma: No Other PMH: Cervical stenosis, celiac's disease, HTN atrial flutter - Social History Smoking Status: Never smoked Alcohol Use: Sober Drug Use: None - Physical Exam Exam: General Appearance: Alert, pleasant Eyes: Pupils equal and round, no conjunctival pallor ENT, Mouth: Mucous membranes moist Neck: Normal inspection Respiratory: Lungs are clear to auscultation Cardiovascular: Regular rate and rhythm Gastrointestinal: Abdomen is soft and nontender Neurological: A&O, nonfocal exam Skin: Warm and dry, no rash Extremities: Nontender, no pedal edema Psychiatric: Mood and affect normal Constitutional: Initial Vital Signs Temperature (C) 36.5 C 07/24/18 16:46 Heart Rate 66 07/24/18 16:46 Respiratory Rate 18 07/24/18 16:46 Blood Pressure 210/117 H 07/24/18 16:46 O2 Sat (%) 96 07/24/18 16:46 O2 Delivery Mode Room Air Allergies/Adverse Reactions: oxycodone [Oxycodone] Allergy (Unknown, Verified 07/24/18 16:42) codeine Allergy (Verified 07/24/18 16:42) GLUTEN Allergy (Intermediate, Uncoded 03/09/10 21:20) Home Medications: Medication Instructions Recorded Chlorthalidone [Chlorthalidone 25 25 mg PO DAILY 01/01/18 mg (*)] Potassium Cl [Klor-Con 10 meq (RX)] 20 meq PO BID 01/01/18 Thyroid [[place] Thyroid 60 MG (*)] 60 mg PO SUWE 01/01/18 celeCOXIB [Celebrex (*)] 200 mg PO BID 01/01/18 Thyroid,Pork [[place] Thyroid] 90 mg PO MOTUTHFRSA 07/04/18 Apixaban [Eliquis] 2.5 mg PO BID 07/24/18 Diltiazem HCl [Diltiazem ER] 120 mg PO HS 07/24/18 Lisinopril [Zestril 10 mg (*)] 10 mg PO DAILY 07/24/18 Medical Decision Making - Diagnostics EKG Interpretation: EKG interpreted by me reveals first-degree AV block, rate 66, no ST or T segment changes. Interpretation: Abnormal EKG Imaging Results: Imaging Impressions Chest X-Ray 07/24/18 16:58 Impression: No acute findings in the chest. Imaging: I viewed and interpreted images myself ED Course/Re-evaluation: This patient presents with a one-week history of intermittent chest pain and significant associated anxiety. Stat EKG reveals no evidence of ischemia or dysrhythmia. Initial troponin is unremarkable. Age-adjusted D-dimer is normal. The patient was sent here for CT pulmonary angiogram, which was ordered at patient and provider request. CT pulmonary angiogram reveals no evidence of pulmonary embolism. Results discussed with the patient. She will be admitted to the hospitalist service for further evaluation of chest pain. Differential Diagnosis: Differential diagnosis includes though it is not limited to pneumonia, pneumothorax, pulmonary embolism, aortic dissection, pericarditis, acute coronary syndrome. - Data Points Laboratory Results: Laboratory Results 07/24/18 17:25 07/24/18 17:25 07/24/18 07/24/18 07/24/18 17:26 17:25 17:25 WBC RBC Hgb Hct MCV MCH MCHC RDW Plt Count MPV Neut % (Auto) Lymph % (Auto) Rains % (Auto) Eos % (Auto) Baso % (Auto) Nucleat RBC Rel Count Absolute Neuts (auto) Absolute Lymphs (auto) Absolute Monos (auto) Absolute Eos (auto) Absolute Basos (auto) Absolute Nucleated RBC Immature Gran % Seg Neutrophils % Band Neutrophils % Lymphocytes % Monocytes % Eosinophils % Basophils % Metamyelocytes % Myelocytes % Promyelocytes % Blast Cells % Immature Gran # Absolute Seg Neuts Absolute Band Neuts Absolute Lymphocytes Absolute Monocytes Absolute Eosinophils Absolute Basophils Absolute Metamyelocyte Absolute Myelocytes Absolute Promyelocytes Absolute Plasma Cells Nucleated RBCs Absolute Blast Cells Plasma Cells % Platelet Estimate Oval Macrocytes Echinocytes D-Dimer 0.62 ug/mLFEU H ug/mLFEU (0.00-0.50) Sodium 130 mEq/L L mEq/L (135-145) Potassium 3.2 mEq/L L mEq/L (3.5-5.2) Chloride 95 mEq/L L mEq/L (97-110) Carbon Dioxide 24 mEq/l mEq/l (22-31) Anion Gap 11 mEq/L mEq/L (6-14) BUN 20 mg/dL mg/dL (7-23) Creatinine 1.0 mg/dL mg/dL (0.6-1.0) Estimated GFR 53 Glucose 95 mg/dL mg/dL (70-100) Calcium 10.0 mg/dL mg/dL (8.5-10.4) POC Troponin I 0.00 ng/mL ng/mL (0.00-0.08) NT-Pro-B Natriuret Pep 345 pg/mL pg/mL (0-450) 07/24/18 17:25 WBC 6.18 10^3/uL 10^3/uL (3.80-9.50) RBC 4.39 10^6/uL 10^6/uL (4.18-5.33) Hgb 14.0 g/dL g/dL (12.6-16.3) Hct 39.6 % % (38.0-47.0) MCV 90.2 fL fL (81.5-99.8) MCH 31.9 pg pg (27.9-34.1) MCHC 35.4 g/dL g/dL (32.4-36.7) RDW 13.7 % % (11.5-15.2) Plt Count 319 10^3/uL 10^3/uL (150-400) MPV 8.7 fL fL (8.7-11.7) Neut % (Auto) Not Reported Lymph % (Auto) Not Reported Rains % (Auto) Not Reported Eos % (Auto) Not Reported Baso % (Auto) Not Reported Nucleat RBC Rel Count Not Reported Absolute Neuts (auto) Not Reported Absolute Lymphs (auto) Not Reported Absolute Monos (auto) Not Reported Absolute Eos (auto) Not Reported Absolute Basos (auto) Not Reported Absolute Nucleated RBC Not Reported Immature Gran % Not Reported Seg Neutrophils % 61.0 % % Band Neutrophils % 0.0 % % Lymphocytes % 36.0 % % Monocytes % 2.0 % % Eosinophils % 1.0 % % Basophils % 0.0 % % Metamyelocytes % 0.0 % % Myelocytes % 0.0 % % Promyelocytes % 0.0 % % Blast Cells % 0.0 % % Immature Gran # Not Reported Absolute Seg Neuts 3.77 10^3/uL 10^3/uL (1.70-6.50) Absolute Band Neuts 0.00 10^3/uL 10^3/uL (0.00-0.70) Absolute Lymphocytes 2.22 10^3/uL 10^3/uL (1.00-3.00) Absolute Monocytes 0.12 10^3/uL L 10^3/uL (0.30-0.80) Absolute Eosinophils 0.06 10^3/uL 10^3/uL (0.03-0.40) Absolute Basophils 0.00 10^3/uL L 10^3/uL (0.02-0.10) Absolute Metamyelocyte 0.00 10^3/mL 10^3/mL (0.00-0.00) Absolute Myelocytes 0.00 10^3/mL 10^3/mL (0.00-0.00) Absolute Promyelocytes 0.00 10^3/uL 10^3/uL (0.00-0.00) Absolute Plasma Cells 0.00 10^3/uL 10^3/uL (0.00-0.00) Nucleated RBCs 0 /100 WBC /100 WBC (0-0) Absolute Blast Cells 0.00 10^3/uL 10^3/uL (0.00-0.00) Plasma Cells % 0.0 % % Platelet Estimate ADEQUATE (ADEQ) Oval Macrocytes 1+ H Echinocytes 2+ H D-Dimer Sodium Potassium Chloride Carbon Dioxide Anion Gap BUN Creatinine Estimated GFR Glucose Calcium POC Troponin I NT-Pro-B Natriuret Pep Medications Given: Apixaban (Eliquis) 2.5 mg PO BID JAMES Stop: 01/20/19 21:29 Last Admin: 07/24/18 22:18 Dose: 2.5 mg Diltiazem HCl (Cardizem Er Q24hr) 120 mg PO HS JAMES Stop: 01/20/19 21:44 Last Admin: 07/24/18 22:18 Dose: 120 mg Sodium Chloride (Ns) 1,000 mls @ 50 mls/hr IV CONT JAMES Stop: 01/20/19 21:44 Last Admin: 07/24/18 22:25 Dose: 1,000 mls Discontinued Medications Potassium Chloride (Klor-Con) 10 - 40 meq PO ONCE ONE PRN Reason: Protocol Stop: 07/24/18 21:58 Last Admin: 07/24/18 22:18 Dose: 40 meq Point of Care Test Results: Chemistry 07/24/18 17:26 POC Troponin I 0.00 ng/mL ng/mL (0.00-0.08) Departure - Departure Disposition: [facility] Inpatient Acute Clinical Impression: Chest pain Qualifiers: Chest pain type: precordial pain Qualified Code(s): R07.2 - Precordial pain Condition: Fair
[2018-07-24] MEDS ORDERED: IOPAMIDOL (ISOVUE 370) 100 ML BTL IV ONE (18:43)
[2018-07-24] MEDS ORDERED: ONDANSETRON 4 MG/2 ML VIAL IVP PRN (21:21)
[2018-07-24] MEDS ORDERED: ONDANSETRON DISINTEGRATING 4 MG TAB PO PRN (21:21)
[2018-07-24] MEDS ORDERED: ACETAMINOPHEN 325 MG TAB PO PRN (21:21)
[2018-07-24] MEDS ORDERED: hydrALAZINE 20 MG/ML VIAL IVP PRN (21:25)
--- NOTE | 2018-07-24 21:30 | PDGENHP ---
History and Physical - Chief Complaint Chest pain - History of Present Illness The patient is an 83-year-old female with past medical history of a flutter status post ablation about 2 weeks ago who was sent over from [facility] where she originally was seen for chest pain. She follows with Dr. Alvarez. She said that she was having her nails done today and developed some sharp left- sided chest pain. The pain resolved spontaneously but came and went few more times throughout the day. Her chest pain did not seem to be related to exertion and came and went spontaneously. The pain did not radiate to her jaw or left arm and was a sharp pain. She also says that she has been having labile blood pressures ever since she had her ablation about 2 weeks ago. Normally her blood pressure runs about 130 systolic and she has been having issues where blood pressure goes extremely high and then is low right after that. She has not had any dizziness presyncope racing heart nausea vomiting diaphoresis or other symptoms. 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 She has not felt that her heart is heart has been racing though. History Information - Allergies/Home Medication List Allergies/Adverse Reactions: oxycodone [Oxycodone] Allergy (Unknown, Verified 07/24/18 16:42) codeine Allergy (Verified 07/24/18 16:42) GLUTEN Allergy (Intermediate, Uncoded 03/09/10 21:20) Home Medications: Chlorthalidone [Chlorthalidone 25 mg (*)] 25 mg PO DAILY 01/01/18 [Last Taken ] Potassium Cl [Klor-Con 10 meq (RX)] 20 meq PO BID 01/01/18 [Last Taken 07/24/18] Thyroid [[place] Thyroid 60 MG (*)] 60 mg PO SUWE 01/01/18 [Last Taken 07/22/18] celeCOXIB [Celebrex (*)] 200 mg PO BID 01/01/18 [Last Taken 07/24/18] Thyroid,Pork [[place] Thyroid] 90 mg PO MOTUTHFRSA 07/04/18 [Last Taken 07/24/18] Apixaban [Eliquis] 2.5 mg PO BID 07/24/18 [Last Taken 07/24/18] Diltiazem HCl [Diltiazem ER] 120 mg PO HS 07/24/18 [Last Taken 07/23/18] Lisinopril [Zestril 10 mg (*)] 10 mg PO DAILY 07/24/18 [Last Taken 07/24/18] I have personally reviewed and updated: family history, medical history, social history, surgical history - Past Medical History atrial fibrillation, hypertension Additional medical history: Hypothyroid AFib status post ablation hypertension - Surgical History Additional surgical history: Link implantation cardiac ablation on July 11 - Social History Smoking Status: Never smoked Alcohol Use: Sober Drug Use: None Review of Systems Review of Systems: ROS: 10pt was reviewed & negative except for what was stated in HPI & below Physical Exam Physical Exam: Temp Pulse Resp BP Pulse Ox 36.6 C 73 17 200/77 H 98 07/24/18 20:35 07/24/18 20:35 07/24/18 20:35 07/24/18 20:35 07/24/18 20:35 Constitutional: no apparent distress, appears nourished, not in pain Eyes: PERRL, anicteric sclera, EOMI Ears, Nose, Mouth, Throat: moist mucous membranes, hearing normal, ears appear normal, no oral mucosal ulcers Cardiovascular: regular rate and rhythym, no murmur, rub, or gallop, No edema Respiratory: no respiratory distress, no rales or rhonchi, clear to auscultation Gastrointestinal: normoactive bowel sounds, soft, non-tender abdomen, no palpable masses Genitourinary: no bladder fullness, no bladder tenderness Skin: warm, normal color, no rashes or abrasions, no fluctuance, no induration, No mottled Musculoskeletal: full muscle strength, no muscle tenderness, normal joint ROM, no joint effusions Psychiatric: interacting appropriately, not anxious, not encephalopathic, thought process linear Lymph, Heme, Immunologic: no cervical LAD, no supraclavicular LAD Lab Data & Imaging Review 07/24/18 17:25 07/24/18 17:25 WBC 6.18 10^3/uL (3.80-9.50) 07/24/18 17:25 RBC 4.39 10^6/uL (4.18-5.33) 07/24/18 17:25 Hgb 14.0 g/dL (12.6-16.3) 07/24/18 17:25 Hct 39.6 % (38.0-47.0) 07/24/18 17:25 MCV 90.2 fL (81.5-99.8) 07/24/18 17:25 MCH 31.9 pg (27.9-34.1) 07/24/18 17:25 MCHC 35.4 g/dL (32.4-36.7) 07/24/18 17:25 RDW 13.7 % (11.5-15.2) 07/24/18 17:25 Plt Count 319 10^3/uL (150-400) 07/24/18 17:25 MPV 8.7 fL (8.7-11.7) 07/24/18 17:25 Neut % (Auto) Not Reported 07/24/18 17:25 Lymph % (Auto) Not Reported 07/24/18 17:25 [place] % (Auto) Not Reported 07/24/18 17:25 Eos % (Auto) Not Reported 07/24/18 17:25 Baso % (Auto) Not Reported 07/24/18 17:25 Nucleat RBC Rel Count Not Reported 07/24/18 17:25 Absolute Neuts (auto) Not Reported 07/24/18 17:25 Absolute Lymphs (auto) Not Reported 07/24/18 17:25 Absolute Monos (auto) Not Reported 07/24/18 17:25 Absolute Eos (auto) Not Reported 07/24/18 17:25 Absolute Basos (auto) Not Reported 07/24/18 17:25 Absolute Nucleated RBC Not Reported 07/24/18 17:25 Immature Gran % Not Reported 07/24/18 17:25 Seg Neutrophils % 61.0 % 07/24/18 17:25 Band Neutrophils % 0.0 % 07/24/18 17:25 Lymphocytes % 36.0 % 07/24/18 17:25 Monocytes % 2.0 % 07/24/18 17:25 Eosinophils % 1.0 % 07/24/18 17:25 Basophils % 0.0 % 07/24/18 17:25 Metamyelocytes % 0.0 % 07/24/18 17:25 Myelocytes % 0.0 % 07/24/18 17:25 Promyelocytes % 0.0 % 07/24/18 17:25 Blast Cells % 0.0 % 07/24/18 17:25 Immature Gran # Not Reported 07/24/18 17:25 Absolute Seg Neuts 3.77 10^3/uL (1.70-6.50) 07/24/18 17:25 Absolute Band Neuts 0.00 10^3/uL (0.00-0.70) 07/24/18 17:25 Absolute Lymphocytes 2.22 10^3/uL (1.00-3.00) 07/24/18 17:25 Absolute Monocytes 0.12 10^3/uL (0.30-0.80) L 07/24/18 17: Absolute Eosinophils 0.06 10^3/uL (0.03-0.40) 07/24/18 17: Absolute Basophils 0.00 10^3/uL (0.02-0.10) L 07/24/18 17:25 Absolute Metamyelocyte 0.00 10^3/mL (0.00-0.00) 07/24/18 17: Absolute Myelocytes 0.00 10^3/mL (0.00-0.00) 07/24/18 17:25 Absolute Promyelocytes 0.00 10^3/uL (0.00-0.00) 07/24/18 17: Absolute Plasma Cells 0.00 10^3/uL (0.00-0.00) 07/24/18 17:25 Nucleated RBCs 0 /100 WBC (0-0) 07/24/18 17:25 Absolute Blast Cells 0.00 10^3/uL (0.00-0.00) 07/24/18 17:25 Plasma Cells % 0.0 % 07/24/18 17:25 Platelet Estimate ADEQUATE (ADEQ) 07/24/18 17:25 Oval Macrocytes 1+ H 07/24/18 17:25 Echinocytes 2+ H 07/24/18 17:25 D-Dimer 0.62 ug/mLFEU (0.00-0.50) H 07/24/18 17:25 Sodium 130 mEq/L (135-145) L 07/24/18 17:25 Potassium 3.2 mEq/L (3.5-5.2) L 07/24/18 17:25 Chloride 95 mEq/L (97-110) L 07/24/18 17:25 Carbon Dioxide 24 mEq/l (22-31) 07/24/18 17:25 Anion Gap 11 mEq/L (6-14) 07/24/18 17:25 BUN 20 mg/dL (7-23) 07/24/18 17:25 Creatinine 1.0 mg/dL (0.6-1.0) 07/24/18 17:25 Estimated GFR 53 07/24/18 17:25 Glucose 95 mg/dL (70-100) 07/24/18 17:25 Calcium 10.0 mg/dL (8.5-10.4) 07/24/18 17:25 POC Troponin I 0.00 ng/mL (0.00-0.08) 07/24/18 17:26 NT-Pro-B Natriuret Pep 345 pg/mL (0-450) 07/24/18 17:25 Assessment & Plan Assessment: 83-year-old female with past medical history of atrial fibrillation status post ablation on July 11 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 Chest pain- her heart score is 3. Initial troponin negative, EKG with no acute ST or T-wave changes. Currently chest pain free. CT was negative for any pulmonary embolus or other abnormality. Chest x-ray unremarkable. She is markedly hypertensive however. -cycle troponins -monitor on telemetry -blood pressure control -Cardiology consult in the morning AFib/flutter- patient was just admitted July 11 for an ablation with length monitor implantation. EKG in the emergency room tonight shows a sinus rhythm with no acute ST or T-wave changes to suggest ischemia. She is on Eliquis 2.5 mg twice daily along with diltiazem. Follows with Dr. Ifeanyi Alvarez. -continue Eliquis -continue diltiazem -cardiology consult in the morning Hyponatremia- could be SIADH versus hypovolemic hyponatremia as she does look little bit dehydrated. Will check urine studies and give gentle intravenous saline and recheck sodium in the morning Hypokalemia- placed on replacement protocol Hypertension- hypertensive he since arrival here with systolics size 200. She has not taken all of her medications today though. She is on diltiazem, lisinopril, and chlorthalidone. Will restart all these medications and add on p.r.n. Hydralazine for systolics over 170. Hypothyroid- continue home Synthroid and pork thyroid Prophylaxis- Eliquis and SCDs Fluids- none Electrolytes-within normal limits Nutrition-cardiac Cor-full Dispo-observation for chest pain
[2018-07-24] MEDS ORDERED: PROTOCOL POTASSIUM 1 DOSE MISC PRN (21:39)
[2018-07-24] MEDS ORDERED: DILTIAZEM CD 120 MG CAP PO SCH (21:45)
[2018-07-24] MEDS ORDERED: NS 1,000 ML IV SCH (21:45)
[2018-07-24] MEDS ORDERED: POTASSIUM CL 10 MEQ TAB PO ONE (21:57)
[2018-07-24] MEDS: APIXABAN 2.5 MG TAB PO SCH (22:18)
--- NOTE | 2018-07-24 22:39 | CPEKG ---
Test Reason : OPEN Blood Pressure : / mmHG Vent. Rate : 066 BPM Atrial Rate : 066 BPM P-R Int : 261 ms QRS Dur : 084 ms QT Int : 429 ms P-R-T Axes : 000 046 043 degrees QTc Int : 450 ms Sinus rhythm Prolonged [place] interval Confirmed by Nette Harp ([id number]) on 07/24/2018 10:39:30 PM Referred By: Nette Harp Confirmed By:Nette Harp
[2018-07-25 04:42] LABS: PLATELET COUNT 292 10^3/uL (150-400)
[2018-07-25 08:09] VITALS: BP 160/68
[2018-07-25] MEDS ORDERED: POTASSIUM CL 10 MEQ TAB PO ONE (08:48)
[2018-07-25] MEDS ORDERED: CHLORTHALIDONE 25 MG TAB PO SCH (09:00)
[2018-07-25] MEDS ORDERED: LISINOPRIL 10 MG TAB PO SCH (09:00)
[2018-07-25] MEDS: APIXABAN 2.5 MG TAB PO SCH (09:03)
--- NOTE | 2018-07-25 09:38 | PDCARPN ---
Cardiology Progress Note Chief Complaint: Chest discomfort, dyspnea, lightheadedness Assessment/Plan: Assessment: 1. Atypical chest discomfort and dyspnea: Described yesterday in clinic as a squeezing sensation to her left chest with radiation to her left shoulder, worse with deep inspiration, accompanied by lightheadedness. Dyspnea has been persistent x1 week and chest discomfort has occurred intermittently since last week. Initial eval last week included unremarkable LINQ interrogation and limited echo which did not demonstrate pericardial effusion or systolic dysfunction. Normal LINQ interrogation yesterday in clinic, symptoms correlate with NSR/sinus bradycardia. Mild tenderness to palpation of left chest. Trop WNL. Negative chest CT without evidence of PE, normal CXR. 12-lead ECG is stable without evidence of ischemia 2. Hypertension: Labile BPs, systolic >200mmHg in the ED, at which time she reported missing a few of her BP meds yesterday. All BP meds re-started today, she will continue to monitor BP once daily upon discharge 3. Hyponatremia: Resolved overnight with normal saline 4. Hypokalemia: She had been reportedly taking potassium 40mEq daily x1 week after her BMP demonstrated potassium of 3.0 last week. Potassium yesterday was 3.2, normalized overnight with 40mEq supplemental potassium 5. Atrial flutter: No known recurrence since her atrial flutter ablation 07/11 6. Mitral regurgitation: moderate to several by echo 07/12, will plan to repeat echo in 6 months for serial evaluation Plan: 1. Low suspicion that symptoms are related to ischemia and/or recent atrial flutter ablation 2. Recommend outpatient [facility] will contact her to schedule this testing 3. She will take her BP meds as directed (Lisinopril, Diltiazem, and Chlorthalidone) and monitor her BP once daily 4. Continue 10mEq of potassium BID, repeat BMP in 1 week 5. Follow-up with Dr. Alvarez as scheduled for routine post-procedure follow-up 07/25/18 09:23 Subjective: Symptoms resolved overnight, she feels stable and would like to go home today Reviewed/Discussed With: multidisciplinary team Time Spent with Patient: greater than 25 minutes Time Spent with Patient: Greater than 25 minutes spent on this patients care, greater than 50% of time spent counseling, educating, and coordinating care regarding the above mentioned plan. Objective: Vital Signs (8 Hrs) Temp Pulse Resp BP Pulse Ox 07/25/18 08:00 36.4 C 61 18 160/68 H 94 07/25/18 04:00 36.4 C 61 16 141/76 H 93 Intake/Output (24 Hrs) 07/24/18 07/25/18 07/26/18 05:59 05:59 05:59 Intake Total 1085 Output Total 900 Balance 185 Intake: Oral (ml) 700 IV Infused (ml) 385 Ns 1,000 ml @ 50 mls/hr 385 IV CONT JAMES Rx#: [id number] Output: Urine (ml) 900 Toilet 900 Other: Weight 58.598 kg Number of Voids 1 Toilet 1 Result Diagrams: 07/25/18 04:06 07/25/18 04:06 Cardiac Labs: Cardiac Lab Results (72 Hrs) 07/25/18 07/24/18 04:06 22:05 Troponin I 0.030 0.034 Telemetry: NSR overnight - Physical Exam Constitutional: WDWN, healthy appearing, no apparent distress Ears, Nose, Mouth, Throat: moist mucous membranes, no oral ulcers, no thrush Cardiovascular: regular rate and rhythm, no rubs, no gallops Respiratory: clear to auscultate bilat, no crackles, no wheezes Gastrointestinal: normoactive bowel sounds, no tenderness, no masses Neurologic: AAOx3, CN II-XII grossly intact Psychiatric: cooperative, interactive, following commands ICD10 Worksheet Patient Problems: Problems Problem Status Onset Chest pain Acute Atrial flutter Acute
--- NOTE | 2018-07-25 09:55 | HOSPPROG ---
Hospitalist Progress Note Assessment/Plan: 83 yo F w SVT, recent ablation, here w CP neg eval home today outpt stress see dc summary Subjective: neg trop. anxious for dc Objective: Vital Signs Temp Pulse Resp BP Pulse Ox 36.4 C 61 18 160/68 H 94 07/25/18 08:00 07/25/18 08:00 07/25/18 08:00 07/25/18 08:00 07/25/18 08:00 Laboratory Results 07/25/18 04:06 07/25/18 04:06 07/24/18 07/25/18 07/26/18 05:59 05:59 05:59 Intake Total 1085 Output Total 900 Balance 185 - Physical Exam Constitutional: no apparent distress, appears nourished Eyes: PERRL, anicteric sclera Ears, Nose, Mouth, Throat: moist mucous membranes, hearing normal Cardiovascular: regular rate and rhythym, no murmur, rub, or gallop Respiratory: no respiratory distress, no rales or rhonchi Gastrointestinal: normoactive bowel sounds, soft, non-tender abdomen Genitourinary: no bladder fullness, no bladder tenderness Skin: warm, normal color Musculoskeletal: full muscle strength ICD10 Worksheet Patient Problems: Problems Problem Status Onset Chest pain Acute Atrial flutter Acute
[2018-07-25] MEDS ORDERED: THYROID 60 MG TAB PO SCH (10:00)
--- NOTE | 2018-07-25 10:51 | ASDISCHSUM ---
Discharge Information Plan Status:Home with No Needs Medically Cleared to Leave: Discharge Date: D/C Disposition:Home, Routine, Self-Care ADT D/C Disposition: Projected Discharge Date:07/25/2018 12:00 AM Transportation at D/C:Family Discharge Delay Reason: Follow-Up Date:07/25/2018 12:00 AM Discharge Slot: Final Diagnosis: Placement Information Patient Contact Information Contact Name:BRIGITTE Relationship: Address:[address] City:[place] Alternate Phone: State/Zip Code:[place] [address] Email: Financial Information Financial Class:Medicare Primary Plan Desc:MEDICARE OUTPATIENT Primary Plan Number:[id number] Secondary Plan Desc:[employer]/MDR SUPPLEMENT Secondary Plan Number:[id number] Assessment Information LACE LACE Length of stay for Answers: Less than 1 day current admission Acuity / Level of Answers: No Care: Did the patient have an inpatient admission? Comorbidities - select Answers: Opioid dependence all that apply / Chronic pain Other Notes: HTN; AFlutter # of Emergency department Answers: 3-4 visits in the last 6 months Score: 8 Date Signed: 07/25/2018 10:50 AM Electronically Signed By:RAMYA Potter Case Management Discharge Plan Note Case Management Discharge Discharge Order Complete? Answers: Yes Patient to Obtain Answers: via Family Medications Transportation Arranged Answers: Family/Friends Discharge Comments Notes: Pt presented with chest pain. Monitored over night. Pt is being discharged independently, family to transport. Pt is current at [facility] and will follow-up with Dr. Alvarez. Family to transport. Date Signed: 07/25/2018 10:50 AM Electronically Signed By:RAMYA Potter Intervention Information
--- NOTE | 2018-07-25 12:16 | GDS ---
[f rep st] DISCHARGE SUMMARY DISCHARGE DIAGNOSES: 1. History of supraventricular tachycardia with recent ablation. 2. Chest pain. 3. Hypertension. HISTORY AND HOSPITAL COURSE: Please see admission history and physical by Dr. Perry Montalvo. The pat ient presented with chest pain. She had a CTA negative for pulmonary embolism. She had troponins th at were 0.03 which is a negative value. This is consistent with recent ablation. The patient had no events on telemetry. She had a negative stress test in December and has plans for outpatient stress t est. She is discharged home on an unchanged medication regimen. Please note, she presented with a s odium of 130. That is now improved. /[id number]/MODL
[2018-07-26] MEDS ORDERED: THYROID 60 MG TAB PO SCH (10:00)
== END 2018-07-25 11:42 | disposition home or self-care (01) ==
LOC: F2W 18:26
PROVIDERS: ADMIT Internal Medicine; ATTEND Internal Medicine
PROC: 3E033RZ Introduction of Antiarrhythmic into Peripheral Vein, Percutaneous Approach (ICD-10-PCS; principal; 2018-07-24)
DX: I47.1 Supraventricular tachycardia (principal); R07.89 Other chest pain; I34.0 Nonrheumatic mitral (valve) insufficiency; I10 Essential (primary) hypertension; Z95.811 Presence of heart assist device; E03.9 Hypothyroidism, unspecified; E87.6 Hypokalemia
CPT/HCPCS: 71046; 71275; 93005; 97165; 99285; G0378; Q9967; 84484-ER

== ENCOUNTER → 2018-09-24 | Outpatient (CLI) | payer OTHER, MEDICARE | LOC: FIMAGING 09:29 | PROVIDERS: ATTEND Internal Medicine | DX: K76.89 Other specified diseases of liver (principal) ==

== ENCOUNTER → 2018-11-15 | Day surgery (SDC) | payer OTHER, MEDICARE | LOC: FCATH 12:29 ==

== ENCOUNTER 2018-11-21 07:24 | Observation (INO) | payer OTHER, MEDICARE | END 2018-11-22 12:16 | disposition home or self-care (01) | LOC: FCATH 07:24 → F2W 10:50 ==

== ENCOUNTER 2018-11-23 16:02 | Observation (INO) | payer OTHER, MEDICARE | END 2018-11-25 11:19 | disposition home or self-care (01) | LOC: F2W 21:30 ==